=== PATIENT | female | born 1995 | race Caucasian/White ===

== ENCOUNTER → 2017-02-16 | Outpatient (CLI) | payer SELFPAY | LOC: RAD 15:08 | PROVIDERS: ATTEND Nurse Practitioner Women's Health | DX: Z34.02 Encounter for supervision of normal first pregnancy, second trimester (principal) | CPT/HCPCS: 76801 ==

== ENCOUNTER 2017-05-16 17:30 | Outpatient (CLI) | payer MEDICAID ==
[2017-05-16 18:25] LABS: APPEARANCE,URINE CLOUDY; BILIRUBIN,URINE NEGATIVE (NEGATIVE); GLUCOSE, URINE NEGATIVE (NEGATIVE); KETONES,URINE NEGATIVE (NEGATIVE); LEUKOCYTE ESTERASE,URINE SMALL (NEGATIVE); NITRITE,URINE NEGATIVE (NEGATIVE); PROTEIN,URINE NEGATIVE (NEGATIVE); URINE SPECIFIC GRAVITY 1.017
[2017-05-16 18:34] LABS: URINE BARBITURATES SCREEN NEGATIVE; URINE METHADONE SCREEN NEGATIVE; URINE OPIATES LOW NEGATIVE; URINE PHENCYCLIDINE SCREEN NEGATIVE
== END 2017-05-16 18:45 | disposition home or self-care (01) ==
LOC: LC 17:30
PROVIDERS: ATTEND Specialist
PROC: 4A1HXCZ Monitoring of Products of Conception, Cardiac Rate, External Approach (ICD-10-PCS; principal; 2017-05-16)
DX: Z34.92 Encounter for supervision of normal pregnancy, unspecified, second trimester (principal); Z36 Encounter for antenatal screening of mother; Z3A.25 25 weeks gestation of pregnancy
CPT/HCPCS: 59899; 81001; 80307; G0480 ×2

== ENCOUNTER 2017-07-07 17:05 | Emergency (ER) | payer MEDICAID ==
[2017-07-07] MEDS ORDERED: NORMAL SALINE 1000 ML 1,000 ML IV PRN (18:17)
[2017-07-07] MEDS ORDERED: ONDANSETRON HCL INJ/PF 4 MG/2 ML SDV IV ONE (18:17)
--- NOTE | 2017-07-07 18:21 | ER Document Report ---
ED Medical Screen (RME) - General Chief Complaint: Flu Symptoms Stated Complaint: FLU LIKE SYMPTOMS Time Seen by Provider: 07/07/17 18:16 Notes: Patient is approximately 33 weeks , first , who says that she is been sick with vomiting for months from her , but for the past 2 days she is vomited about 30 times and remains nauseated and does not get relief with the dissolving Zofran tablet. Has not tried Phenergan or Reglan. She started having some diarrhea this morning. Also has been congested and voices somewhat hoarse and she has pain in her throat in both of her ears and says her head is "pounding". She has a cough that is productive of some phlegm. Also running some low-grade fever. TRAVEL OUTSIDE OF THE [place] IN LAST 30 DAYS: No - Related Data Allergies/Adverse Reactions: No Known Allergies Allergy (Verified 07/07/17 17:10) Past Medical History Renal/ Medical History: Denies: Hx Peritoneal Dialysis Past Surgical History: Reports: Hx Tonsillectomy - Immunizations Hx Diphtheria, Pertussis, Tetanus Vaccination: Yes Physical Exam - Vital signs Vitals: Temp Pulse Resp BP Pulse Ox 98.6 F 115 H 18 148/81 H 98 07/07/17 17:08 07/07/17 17:08 07/07/17 17:08 07/07/17 17:08 07/07/17 17:08 Course - Vital Signs Vital signs: Temp Pulse Resp BP Pulse Ox 98.6 F 115 H 18 148/81 H 98 07/07/17 17:08 07/07/17 17:08 07/07/17 17:08 07/07/17 17:08 07/07/17 17:08
[2017-07-07 18:47] LABS: HEMATOCRIT 37.9 % (36.0-47.0); HGB HCT DIFFERENCE 1.1; MEAN CORPUSCULAR HEMOGLOBIN 30.6 pg (27.0-33.4); MEAN CORPUSCULAR HGB CONC 34.4 g/dL (32.0-36.0); MEAN CORPUSCULAR VOLUME 89 fl (80-97); RED BLOOD COUNT 4.26 10^6/uL (3.72-5.28); RED CELL DISTRIBUTION WIDTH 12.6 % (11.5-14.0); WHITE BLOOD COUNT 14.4 10^3/uL (4.0-10.5)
[2017-07-07 19:00] LABS: APPEARANCE,URINE CLOUDY; BILIRUBIN,URINE NEGATIVE (NEGATIVE); GLUCOSE, URINE NEGATIVE (NEGATIVE); KETONES,URINE 80 mg/dL (NEGATIVE); LEUKOCYTE ESTERASE,URINE TRACE (NEGATIVE); NITRITE,URINE NEGATIVE (NEGATIVE); PROTEIN,URINE 30 mg/dL (NEGATIVE); URINE SPECIFIC GRAVITY 1.025; UROBILINOGEN,URINE NEGATIVE mg/dL (<2.0)
[2017-07-07 19:02] LABS: ALANINE AMINOTRANSFERASE 26 U/L (9-52); ALBUMIN 3.8 g/dL (3.5-5.0); ALKALINE PHOSPHATASE 141 U/L (38-126); ANION GAP 11 (5-19); ASPARTATE AMINO TRANSFERASE 19 U/L (14-36); BILIRUBIN,DIRECT 0.3 mg/dL (0.0-0.4); BILIRUBIN,TOTAL 0.5 mg/dL (0.2-1.3); BLOOD UREA NITROGEN 6 mg/dL (7-20); CALCIUM 9.7 mg/dL (8.4-10.2); CARBON DIOXIDE 22 mmol/L (22-30); CHLORIDE 104 mmol/L (98-107); CREATININE RESULT 0.51 mg/dL (0.52-1.25); GLUCOSE 74 mg/dL (75-110); LIPASE 191.4 U/L (23-300); POTASSIUM 4.3 mmol/L (3.6-5.0); SODIUM 136.8 mmol/L (137-145); TOTAL PROTEIN 6.8 g/dL (6.3-8.2)
[2017-07-07 19:07] LABS: BASOPHILS % (MANUAL) 0 % (0-2); EOSINOPHILS % (MANUAL) 0 % (0-6); LYMPHOCYTES % (MANUAL) 2 % (13-45); TOTAL CELLS COUNTED 100
[2017-07-07 19:11] LABS: RBC MORPHOLOGY COMMENT NORMO-CYTIC/CHROMIC; TOXIC GRANULATION 1+
[2017-07-07 19:12] LABS: PLATELET CLUMPS PRESENT
--- NOTE | 2017-07-07 21:47 | ER Document Report ---
ED Flu Like - General Chief Complaint: Flu Symptoms Stated Complaint: FLU LIKE SYMPTOMS Time Seen by Provider: 07/07/17 18:16 Notes: Patient is approximately 33 weeks , first , who says that she is been sick with vomiting for months from her , but for the past 2 days she is vomited about 30 times and remains nauseated and does not get relief with the dissolving Zofran tablet. Has not tried Phenergan or Reglan. She started having some diarrhea this morning. Also has been congested and voices somewhat hoarse and she has pain in her throat in both of her ears and says her head is "pounding". She has a cough that is productive of some phlegm. Also running some low-grade fever. TRAVEL OUTSIDE OF THE [place] IN LAST 30 DAYS: No - Related Data Allergies/Adverse Reactions: No Known Allergies Allergy (Verified 07/07/17 17:10) Past Medical History - Social History Smoking Status: Never Smoker Chew tobacco use (# tins/day): No Frequency of alcohol use: None Drug Abuse: None Family History: Reviewed & Not Pertinent Renal/ Medical History: Denies: Hx Peritoneal Dialysis Past Surgical History: Reports: Hx Tonsillectomy - Immunizations Hx Diphtheria, Pertussis, Tetanus Vaccination: Yes Review of Systems - Review of Systems Constitutional: No symptoms reported EENT: See HPI Gastrointestinal: See HPI -: Yes All other systems reviewed and negative Physical Exam - Vital signs Vitals: Temp Pulse Resp BP Pulse Ox 98.6 F 115 H 18 148/81 H 98 07/07/17 17:08 07/07/17 17:08 07/07/17 17:08 07/07/17 17:08 07/07/17 17:08 - Notes Notes: PHYSICAL EXAM GENERAL: Alert, interacts well. HEAD: Normocephalic, atraumatic. EYES: Pupils equal, round, and reactive to light. Extraocular movements intact. ENT: Oral mucosa moist, tongue midline. NECK: Full range of motion. Supple. Trachea midline. LUNGS: Clear to auscultation bilaterally, no wheezes, rales, or rhonchi. No respiratory distress. HEART: Regular rate and rhythm. No murmurs, gallops, or rubs. ABDOMEN: Gravid female, Soft, nondistended, nontender. No guarding, rebound, or rigidity.. Bowel sounds present in all 4 quadrants. EXTREMITIES: Moves all 4 extremities spontaneously. No edema, radial and dorsalis pedis pulses 2/4 bilaterally. No cyanosis. NEUROLOGICAL: Alert and oriented x4. Normal speech. PSYCH: Normal affect, normal mood. SKIN: Warm, dry, normal turgor. No rashes or lesions noted. Course - Re-evaluation Re-evalutation: 07/08/17 06:47 Patient is a 22-year-old female who is hemodynamically stable, no acute distress afebrile. Presents with dehydration and evidence of upper respiratory infection. No evidence of leukocytosis. Patient responded well to IV fluids discharge home is not a new medication and to follow-up with TRUCK GUARD. - Vital Signs Vital signs: Temp Pulse Resp BP Pulse Ox 98.7 F 94 16 131/66 H 97 07/07/17 22:52 07/07/17 22:52 07/07/17 22:52 07/07/17 22:52 07/07/17 22:52 - Laboratory Result Diagrams: 07/07/17 18:34 07/07/17 18:34 Laboratory results interpreted by me: 07/07/17 07/07/17 07/07/17 17:44 18:34 18:34 WBC 14.4 H Seg Neuts % (Manual) 91 H Lymphocytes % (Manual) 2 L Abs Neuts (Manual) 13.1 H Abs Lymphs (Manual) 0.3 L Sodium 136.8 L BUN 6 L Creatinine 0.51 L Glucose 74 L Alkaline Phosphatase 141 H Urine Protein 30 H Urine Ketones 80 H Ur Leukocyte Esterase TRACE H Discharge - Discharge Clinical Impression: Hay fever, Vomiting Condition: Good Disposition: HOME, SELF-CARE Additional Instructions: VOMITING: Vomiting (or nausea without vomiting) can be caused by many other different problems. It can mean that something's wrong with the stomach, such as ulcers or inflammation or the intestinal tract, such as appendicitis. But it can also be a symptom of a problem that has nothing to do with the stomach or intestines. Vomiting is common with severe headaches, earaches, tonsillitis, and kidney infections, etc. We see it with pneumonia or heart attacks. Drugs can cause nausea and vomiting. Many abdominal problems cause vomiting; for example, gallstones, kidney stones, pancreatitis, and intestinal obstruction ( blocked bowels). In most cases, curing the vomiting depends on fixing the problem that caused it. For temporary relief, we may use an anti-nausea medicine. For home use, we can prescribe suppositories, chewable pills, pills that dissolve in the mouth, or liquid anti-nausea drugs. If the vomiting seems to be caused by a problem in the stomach, acid-suppressing drugs may be prescribed as well. It's important to avoid dehydration. Sip small amounts of clear liquids ( soft drinks, tea, broth, etc) . Try to take fluids frequently even if you are vomiting to prevent dehydration. Take increasing amounts of fluid and when liquids are being consumed successfully, advance to small amounts of bland food (toast, soups, mashed potatoes, etc.) until you are able to resume a regular diet. Avoid aspirin, tobacco, and alcohol. If the vomiting worsens, if the problem that's making you vomit worsens, or if there's evidence of bleeding in the stomach (such as black, tarry stool, or bloody or black vomit), you should return immediately. Also, return if abdominal pain worsens or becomes localized to one area or you develop high fever. Call your doctor if you aren't improved in 24 hours. VIRAL SYNDROME: The physician has diagnosed a viral infection. Viruses not only cause "colds," but can cause many different symptoms including generalized aching, fever, headache, cough, diarrhea, nausea, vomiting, and fatigue. The treatment, for the most part, is simply relief of symptoms. This means that antibiotics are usually not given. Rest, fluids, pain medications and, occasionally, medication for the specific symptoms that are most bothersome will be prescribed. Use good handwashing to avoid passing the virus to others. Shared toys should be cleaned with disinfectant. Clean the toilets, sinks, and counter surfaces in bathrooms. Launder clothing in hot water. Contact the physician if you develop any new or unusual symptoms such as severe headache, stiff neck, high fever, chest pain, productive cough, or shortness of breath. You should be rechecked if you don't see marked improvement within seven to 10 days. INTRAVENOUS (I V) FLUIDS: As part of your care today, you received intravenous (IV) fluids. IV fluids are administered to patients who are dehydrated or to those who have certain chemical (electrolyte) abnormalities that need correcting. ANTINAUSEA MEDICATION: You have been given a medication to suppress nausea and vomiting. This type of medication can be given as a shot, pill, or suppository. It will usually last for many hours. Pills and shots usually last six to eight hours. For the typical illness, only one or two doses of the medication may be necessary. Mild lightheadedness may occur. This type of medicine can cause drowsiness. Do not drive or operate dangerous machinery while under its influence. Do not mix with alcohol. See your doctor at once if you have muscle spasms or tightness, or uncontrollable motions (particularly of the neck, mouth, or jaw). Persistent vomiting or severe lightheadedness should also be evaluated by the physician. FOLLOW-UP CARE: If you have been referred to a physician for follow-up care, call the physician s office for an appointment as you were instructed or within the next two days. If you experience worsening or a significant change in your symptoms, notify the physician immediately or return to the Emergency Department at any time for re-evaluation. Prescriptions: Ondansetron [Zofran Odt 4 mg Tablet] 1 - 2 tab PO Q4H PRN #15 tab.rapdis PRN Reason: For Nausea/Vomiting Promethazine HCl [Phenergan 25 mg Tablet] 1 tab PO Q8H PRN #10 tablet PRN Reason: Referrals: RO RAI MD [Primary Care Provider] - Follow up as needed
[2017-07-07] MEDS ORDERED: ONDANSETRON ODT 4 MG TAB (6 TAB/DSPK) PO PRN (22:32)
[2017-07-07 22:54] VITALS: BP 131/66
== END 2017-07-07 22:50 | disposition home or self-care (01) ==
LOC: ER 17:05
DX: O99.519 Diseases of the respiratory system complicating pregnancy, unspecified trimester (principal); J30.1 Allergic rhinitis due to pollen; O21.9 Vomiting of pregnancy, unspecified; O26.899 Other specified pregnancy related conditions, unspecified trimester; R19.7 Diarrhea, unspecified; H92.03 Otalgia, bilateral; R07.0 Pain in throat; R05 Cough; R50.9 Fever, unspecified; O99.280 Endocrine, nutritional and metabolic diseases complicating pregnancy, unspecified trimester; E86.0 Dehydration; Z3A.00 Weeks of gestation of pregnancy not specified
CPT/HCPCS: 99283; 96361; 96374; 36415; 87070; 87086; 87880; 83690; 85025; 87088; 80053; 81001; 87186; J2405; J7030

== ENCOUNTER 2017-08-22 16:25 | Outpatient (CLI) | payer MEDICAID ==
[2017-08-22 17:24] LABS: APPEARANCE,URINE CLEAR; BILIRUBIN,URINE NEGATIVE (NEGATIVE); GLUCOSE, URINE NEGATIVE (NEGATIVE); KETONES,URINE NEGATIVE (NEGATIVE); LEUKOCYTE ESTERASE,URINE NEGATIVE (NEGATIVE); NITRITE,URINE NEGATIVE (NEGATIVE); PROTEIN,URINE NEGATIVE (NEGATIVE); URINE SPECIFIC GRAVITY 1.015; UROBILINOGEN,URINE NEGATIVE mg/dL (<2.0)
--- NOTE | 2017-08-22 17:26 | Non Stress Test Report ---
Non Stress Test Datetime Report Generated by CPN: 08/22/2017 17:26 DEMOGRAPHIC EGA NST: 39.4 INDICATION Indication for Study: Ordered by Provider MONITORING Monitor Explained: Monitor Explained; Test Explained; Patient Verbalized Understanding Time on Monitor: 08/22/2017 16:44 Time off Monitor: 08/22/2017 17:24 NST Duration: 40 NST INTERVENTIONS NST Interventions: PO Hydration BABY A: [id number] BABY A Movement : Present Contraction Frequency : rare FHR Baseline : 145 Accelerations : 15X15 Decelerations : None Variability : Moderate 6-25bpm NST Review: Meets Criteria for Reactive NST NST Review and Verified By : Priyanka Villa RNC NST Results: Reactive NST REPORT Report Trigger: Send Report
[2017-08-22 17:37] LABS: ABSOLUTE EOSINOPHILS # (AUTO) 0.1 10^3/uL (0.0-0.6); ABSOLUTE LYMPHOCYTES (AUTO) 1.5 10^3/uL (0.5-4.7); ABSOLUTE MONOCYTES (AUTO) 0.7 10^3/uL (0.1-1.4); ABSOLUTE NEUT (AUTO) 8.6 10^3/uL (1.7-8.2); BASOPHILS % (AUTO) 0.4 % (0-2); EOSINOPHILS % (AUTO) 0.9 % (0-6); HEMATOCRIT 37.9 % (36.0-47.0); HEMOGLOBIN 13.2 g/dL (12.0-15.5); HGB HCT DIFFERENCE 1.7; LYMPHOCYTES % (AUTO) 13.9 % (13-45); MEAN CORPUSCULAR HEMOGLOBIN 30.8 pg (27.0-33.4); MEAN CORPUSCULAR HGB CONC 34.8 g/dL (32.0-36.0); MEAN CORPUSCULAR VOLUME 89 fl (80-97); MONOCYTES % (AUTO) 6.4 % (3-13); RED BLOOD COUNT 4.27 10^6/uL (3.72-5.28); RED CELL DISTRIBUTION WIDTH 13.5 % (11.5-14.0); SEGMENTED NEUTROPHILS % (AUTO) 78.4 % (42-78); WHITE BLOOD COUNT 10.9 10^3/uL (4.0-10.5)
[2017-08-22 17:44] LABS: URINE BARBITURATES SCREEN NEGATIVE; URINE METHADONE SCREEN NEGATIVE; URINE OPIATES LOW NEGATIVE; URINE PHENCYCLIDINE SCREEN NEGATIVE
[2017-08-22 17:49] LABS: URINE CREATININE 88.5 mg/dL (16-327); URINE PROTEIN 11.3 mg/dL (<12)
[2017-08-22 18:12] LABS: ALANINE AMINOTRANSFERASE 30 U/L (9-52); ALBUMIN 3.5 g/dL (3.5-5.0); ALKALINE PHOSPHATASE 149 U/L (38-126); ANION GAP 11 (5-19); ASPARTATE AMINO TRANSFERASE 20 U/L (14-36); BILIRUBIN,DIRECT 0.4 mg/dL (0.0-0.4); BILIRUBIN,TOTAL 0.5 mg/dL (0.2-1.3); BLOOD UREA NITROGEN 10 mg/dL (7-20); CALCIUM 9.6 mg/dL (8.4-10.2); CARBON DIOXIDE 23 mmol/L (22-30); CHLORIDE 106 mmol/L (98-107); CREATININE RESULT 0.59 mg/dL (0.52-1.25); GLUCOSE 76 mg/dL (75-110); LDH 390 U/L (313-618); POTASSIUM 4.2 mmol/L (3.6-5.0); SODIUM 139.7 mmol/L (137-145); TOTAL PROTEIN 6.1 g/dL (6.3-8.2); URIC ACID 5.9 mg/dL (2.5-6.2)
== END 2017-08-22 18:36 | disposition home or self-care (01) ==
LOC: LC 16:25
PROVIDERS: ATTEND Obstetrics & Gynecology
PROC: 4A1HXCZ Monitoring of Products of Conception, Cardiac Rate, External Approach (ICD-10-PCS; principal; 2017-08-22)
DX: O14.93 Unspecified pre-eclampsia, third trimester (principal); Z3A.39 39 weeks gestation of pregnancy
CPT/HCPCS: 36415; 59025; 80053; 80307; 81001; 82570; 83615; 84156; 84550; 85025

== ENCOUNTER 2017-08-30 22:01 | Outpatient (CLI) | payer MEDICAID ==
[2017-08-30] MEDS ORDERED: ONDANSETRON 4 MG TAB.RAPDIS ONE (22:41)
[2017-08-30 22:48] LABS: APPEARANCE,URINE SLIGHTLY-CLOUDY; BILIRUBIN,URINE NEGATIVE (NEGATIVE); GLUCOSE, URINE NEGATIVE (NEGATIVE); KETONES,URINE NEGATIVE (NEGATIVE); LEUKOCYTE ESTERASE,URINE NEGATIVE (NEGATIVE); NITRITE,URINE NEGATIVE (NEGATIVE); PROTEIN,URINE NEGATIVE (NEGATIVE)
[2017-08-30 22:54] LABS: AMNISURE (ROM) NEGATIVE (NEGATIVE)
[2017-08-30 23:03] LABS: URINE BARBITURATES SCREEN NEGATIVE; URINE METHADONE SCREEN NEGATIVE; URINE OPIATES LOW NEGATIVE; URINE PHENCYCLIDINE SCREEN NEGATIVE
[2017-08-30] MEDS ORDERED: ONDANSETRON 4 MG TAB.RAPDIS PO ONE (23:44)
--- NOTE | 2017-08-31 00:43 | Non Stress Test Report ---
Non Stress Test Datetime Report Generated by CPN: 08/31/2017 00:43 DEMOGRAPHIC Test Number: 2 EGA NST: 40.5 INDICATION Indication for Study: Ordered by Provider MONITORING Monitor Explained: Monitor Explained; Test Explained; Patient Verbalized Understanding Time on Monitor: 08/30/2017 22:56 Time off Monitor: 08/30/2017 23:21 NST Duration: 25 NST INTERVENTIONS NST Interventions: None Physician Notified NST: Dr. Thomas BABY A: [id number] Movement : Present Movement : Present Contraction Frequency : 3-6 FHR Baseline : 135 Accelerations : 15X15 Decelerations : None Variability : Moderate 6-25bpm NST Review: Meets Criteria for Reactive NST NST Review and Verified By : NICOLE AlmanzaT Results: Reactive NST REPORT Report Trigger: Send Report
== END 2017-08-31 00:35 | disposition home or self-care (01) ==
LOC: LC 22:01
PROVIDERS: ATTEND Obstetrics & Gynecology
PROC: 4A1HXCZ Monitoring of Products of Conception, Cardiac Rate, External Approach (ICD-10-PCS; principal; 2017-08-30)
DX: O47.1 False labor at or after 37 completed weeks of gestation (principal); Z3A.40 40 weeks gestation of pregnancy
CPT/HCPCS: 59025; 84112; 81005; 80307; S0119

== ENCOUNTER 2017-08-31 08:20 | Inpatient (IN) | payer MEDICAID ==
[2017-08-31] MEDS ORDERED: RINGERS SOLUTION,LACTATED 1,000 ML IV ONE (08:50)
[2017-08-31 09:20] LABS: ABSOLUTE BASOPHILS # (AUTO) 0.1 10^3/uL (0.0-0.2); ABSOLUTE LYMPHOCYTES (AUTO) 1.2 10^3/uL (0.5-4.7); ABSOLUTE MONOCYTES (AUTO) 0.7 10^3/uL (0.1-1.4); ABSOLUTE NEUT (AUTO) 13.9 10^3/uL (1.7-8.2); BASOPHILS % (AUTO) 0.4 % (0-2); EOSINOPHILS % (AUTO) 0.1 % (0-6); HEMATOCRIT 39.5 % (36.0-47.0); HEMOGLOBIN 13.6 g/dL (12.0-15.5); HGB HCT DIFFERENCE 1.3; LYMPHOCYTES % (AUTO) 7.4 % (13-45); MEAN CORPUSCULAR HGB CONC 34.4 g/dL (32.0-36.0); MEAN CORPUSCULAR VOLUME 87 fl (80-97); MONOCYTES % (AUTO) 4.1 % (3-13); RED BLOOD COUNT 4.54 10^6/uL (3.72-5.28); RED CELL DISTRIBUTION WIDTH 13.5 % (11.5-14.0); WHITE BLOOD COUNT 15.8 10^3/uL (4.0-10.5)
[2017-08-31 09:22] LABS: APPEARANCE,URINE CLOUDY; BILIRUBIN,URINE NEGATIVE (NEGATIVE); GLUCOSE, URINE NEGATIVE (NEGATIVE); KETONES,URINE 80 mg/dL (NEGATIVE); LEUKOCYTE ESTERASE,URINE NEGATIVE (NEGATIVE); NITRITE,URINE NEGATIVE (NEGATIVE); PROTEIN,URINE 100 mg/dL (NEGATIVE); URINE SPECIFIC GRAVITY 1.021
[2017-08-31] MEDS ORDERED: EPHEDRINE SULFATE INJ 50 MG/1 ML AMPULE ONE (09:34)
[2017-08-31] MEDS ORDERED: LIDOCAINE 1% INJ-PF (10 MG/ML) 30 ML SDV ONE (09:35)
[2017-08-31] MEDS ORDERED: MISOPROSTOL 0.2 MG TABLET ONE (09:35)
[2017-08-31] MEDS ORDERED: FENTANYL/BUPIVACAINE/NS/PF 200 MCG/100 ML RTUINJ EPI ONE (09:35)
[2017-08-31] MEDS ORDERED: OXYTOCIN/NORMAL SALINE 20 UNIT/1,000 ML RTUINJ ONE (09:35)
[2017-08-31] MEDS ORDERED: BUPIVACAINE HCL 0.25 % INJ/PF (2.5 MG/1 ML) 30 ML VIAL ONE (09:35)
[2017-08-31 09:42] LABS: URINE BARBITURATES SCREEN NEGATIVE; URINE OPIATES LOW NEGATIVE; URINE PHENCYCLIDINE SCREEN NEGATIVE
[2017-08-31 09:47] LABS: URINE METHADONE SCREEN NEGATIVE
[2017-08-31] MEDS ORDERED: FENTANYL/BUPIVACAINE/NS/PF 200 MCG/100 ML RTUINJ EPI PRN (10:42)
[2017-08-31] MEDS ORDERED: BUPIVACAINE HCL 0.25 % INJ/PF (2.5 MG/1 ML) 30 ML VIAL INFIL ONE (10:42)
[2017-08-31] MEDS ORDERED: EPHEDRINE SULFATE INJ 50 MG/1 ML AMPULE IV PRN (10:42)
[2017-08-31] MEDS ORDERED: BENZOIN/ALOE VERA/STORAX/TOLU TINCTURE 60 ML TP PRN (10:42)
[2017-08-31] MEDS ORDERED: NALOXONE HCL INJ/PF 0.4 MG/1 ML SDV IV PRN (10:44)
[2017-08-31] MEDS ORDERED: OXYTOCIN 10 UNIT/ML VIAL IV PRN (10:44)
[2017-08-31] MEDS ORDERED: METHYLERGONOVINE MALEATE INJ/PF 0.2 MG/1 ML AMPULE IV PRN (10:44)
[2017-08-31] MEDS ORDERED: MISOPROSTOL 0.2 MG TABLET PR PRN (10:44)
[2017-08-31] MEDS ORDERED: OXYTOCIN/NORMAL SALINE 20 UNIT/1,000 ML RTUINJ IV SCH (10:45)
[2017-08-31] MEDS: RINGERS SOLUTION,LACTATED 1,000 ML IV PRN ×2 (10:49→14:05)
--- NOTE | 2017-08-31 11:46 | L&D Progress Notes ---
PROGRESS NOTES Datetime Report Generated by CPN: 08/31/2017 11:46 PROGRESS NOTE Impression: Normal Progression of Labor; Reassuring Heart Rate Plan: Continue Present Management; Induction Vital Signs : Reviewed; Within Normal Limits Comment: Progressing, c/o of pain even with epidural, Cat 1 strip, anticipate MEMBRANES Membranes: Ruptured FETUS A Variability: Moderate 6-25bpm : 40.6 Presentation: Vertex SIGNATURE SIGNATURE: [id number] SIGNATURE: [id number] SIGNATURE: [id number] Assignment: Bam Chavez DO Signature: with User ID: [email or web address] : with User ID: [email or web address]
[2017-08-31] MEDS ORDERED: NALBUPHINE HCL INJ 10 MG/1 ML AMPULE ONE (12:09)
[2017-08-31] MEDS ORDERED: DIPHENHYDRAMINE HCL 50 MG/ML VIAL IV ONE (12:47)
[2017-08-31] MEDS ORDERED: DIPHENHYDRAMINE HCL 50 MG/ML VIAL ONE (12:49)
[2017-08-31] MEDS ORDERED: LIDOCAINE 2% INJ-PF (20 MG/ML) 10 ML AMPUL ONE (13:17)
[2017-08-31 14:05] LABS: ALANINE AMINOTRANSFERASE 25 U/L (9-52); ALBUMIN 3.9 g/dL (3.5-5.0); ALKALINE PHOSPHATASE 192 U/L (38-126); ANION GAP 14 (5-19); ASPARTATE AMINO TRANSFERASE 28 U/L (14-36); BILIRUBIN,DIRECT 0.4 mg/dL (0.0-0.4); BILIRUBIN,TOTAL 0.6 mg/dL (0.2-1.3); BLOOD UREA NITROGEN 7 mg/dL (7-20); CALCIUM 9.9 mg/dL (8.4-10.2); CARBON DIOXIDE 20 mmol/L (22-30); CHLORIDE 106 mmol/L (98-107); CREATININE RESULT 0.61 mg/dL (0.52-1.25); GLUCOSE 110 mg/dL (75-110); LDH 488 U/L (313-618); POTASSIUM 4.1 mmol/L (3.6-5.0); SODIUM 139.7 mmol/L (137-145); TOTAL PROTEIN 6.8 g/dL (6.3-8.2); URIC ACID 6.5 mg/dL (2.5-6.2)
[2017-08-31] MEDS ORDERED: PROMETHAZINE HCL INJ 25 MG/1 ML VIAL IV PRN (16:10)
[2017-08-31] MEDS ORDERED: PROMETHAZINE HCL 25 MG SUPP.RECT PR PRN (16:10)
[2017-08-31] MEDS ORDERED: DIPHENHYDRAMINE HCL 25 MG CAPSULE PO PRN (16:10)
[2017-08-31] MEDS ORDERED: PROMETHAZINE HCL 25 MG TABLET PO PRN (16:10)
[2017-08-31] MEDS ORDERED: ZOLPIDEM TARTRATE 5 MG TABLET PO PRN (16:10)
[2017-08-31] MEDS ORDERED: ACETAMINOPHEN 650 MG SUPP.RECT PR PRN (16:10)
[2017-08-31] MEDS ORDERED: ACETAMINOPHEN WITH CODEINE #3 TABLET PO PRN ×2 (16:10)
[2017-08-31] MEDS ORDERED: GLYCERIN/WITCH HAZEL LEAF 1 EACH MED..PAD TP PRN (16:10)
[2017-08-31] MEDS ORDERED: PSEUDOEPHEDRINE HCL 30 MG TABLET PO PRN (16:10)
[2017-08-31] MEDS ORDERED: BENZOCAINE/MENTHOL AEROSOL SPRAY 56 ML TOP PRN (16:10)
[2017-08-31] MEDS ORDERED: DIPH/PERTUSS(ACELL)/TETANUS VAC/PF 0.5 ML SYR (>=10YO) IM PRN (16:10)
[2017-08-31] MEDS ORDERED: MEASLES,MUMPS&RUBELLA VACC/PF 0.5 ML VIAL SUBCUT PRN (16:10)
[2017-08-31] MEDS ORDERED: MAGNESIUM HYDROXIDE SUSP 30 ML UDCUP PO PRN (16:10)
[2017-08-31] MEDS ORDERED: OXYTOCIN/NORMAL SALINE 20 UNIT/1,000 ML RTUINJ IV PRN (16:10)
[2017-08-31] MEDS ORDERED: NA PHOS,M-B/NA PHOS,DI-BA (ADULT) 133 ML ENEMA PR PRN (16:10)
[2017-08-31] MEDS ORDERED: DIBUCAINE 1% OINTMENT 28 GM TP PRN (16:10)
[2017-08-31] MEDS ORDERED: BENZOCAINE/MENTHOL AEROSOL SPRAY 56 ML ONE (17:00)
--- NOTE | 2017-08-31 18:15 | Delivery Summary ---
Del Sum A-C Datetime Report Generated by CPN: 08/31/2017 18:14 DELIVERY PERSONNEL DELIVERY PERSONNEL: [id number] Delivery Doctor:: Miladys Medina CNM Nurse Certified Ophthalmic Assistant Certified:: Miladys Medina CNM Labor and Delivery Nurse:: Yeyo Antunez RNlicensed mortgage loan officer Nurse:: Sommer Tapia RN Predator Control Trapper/CREW TRUCK DRIVER: Roro Smalls CST Predator Control Trapper/CREW TRUCK DRIVER: Kenisha Cerda CST Additional Personnel: : Belkys Garcia, RNC MATERNAL INFORMATION Delivery Anesthesia: Epidural Medications After Delivery: Pitocin Bolus-Please Comment; Pitocin Drip 20 Units/1000ml NSS; Cytotec 600mcg Per Rectum/Vagina Estimated Blood Loss (ml): 300 Maternal Complications: None Provider Comments: Pt pushing, on perineum, viable boy from OA to ANNABELLE, compound hand presentation, placed on mothers abd, cord clamped and cut after 2 minutes by FOB. Spont del of grossly normal intact placenta, 3 vc, ebl = 300 cc, no lacerations, IV Pitocin, massage, cytotec 600 mcg via rectum, baby and mom remain in recovery in stable condition (Annotations: Data stored by N on behalf of user) LABOR SUMMARY EDC: 08/25/2017 00:00 No. Babies in Womb: 1 Attempted: No Labor Anesthesia: Epidural LABOR INFORMATION Reason for Induction: Not Applicable Onset of Labor: 08/31/2017 03:00 Complete Dilatation: 08/31/2017 15:38 Cervical Ripening Agents: Cytotec @ 600 Oxytocin: N/A Group B Beta Strep: Negative Antibiotics # of Doses: 0 Steroids Given: None Reason Steroids Not Administered: Not Applicable MEMBRANES Membranes Rupture Method: Spontaneous Rupture of Membranes: 08/31/2017 10:35 Length of Rupture (hr): 5.28 Amniotic Fluid Color: Clear Amniotic Fluid Amount: Small Amniotic Fluid Odor: None STAGES OF LABOR Stage 1 hr: 12 Stage 1 min: 38 Stage 2 hr: 0 Stage 2 min: 14 Stage 3 hr: 0 Stage 3 min: 5 Total Time in Labor hr: 12 Total Time in Labor min: 57 VAGINAL DELIVERY Episiotomy: None Laceration #1: None Laceration Extension #1: N/A Laceration Repair: Not Applicable Sponge Count Correct: N/A Sharps Count Correct: N/A CSECTION DELIVERY Primary Indication: N/A Secondary Indication: N/A CSection Incidence: N/A Labor: N/A Elective: N/A CSection Incision: N/A BABY A INFORMATION Delivery Date/Time: 08/31/2017 15:52 Method of Delivery: Vaginal Born in Route : No : N/A Forceps: N/A Vacuum Extraction: N/A Shoulder Dystocia : No PRESENTATION/POSITION BABY A Presentation: Cephalic Cephalic Presentation: Vertex Vertex Position: OA Breech Presentation: N/A PLACENTA INFORMATION BABY A Placenta Delivery Time : 08/31/2017 15:57 Placenta Method of Delivery: Spontaneous Placenta Status: Delivered SCORES BABY A Heart Rate 1 min: >100 bpm Resp Effort 1 min: Good Cry Reflex Irritability 1 min: Cough or Sneeze or Pulls Away Muscle Tone 1 min: Some Flexion of Extremities Color 1 min: Body [place], Extremities Blue Resuscitation Effort 1 min: Tactile Stimulation SCORE 1 MIN: 8 Heart Rate 5 min: >100 bpm Resp Effort 5 min: Good Cry Reflex Irritability 5 min: Cough or Sneeze or Pulls Away Muscle Tone 5 min: Some Flexion of Extremities Color 5 min: Body [place], Extremities Blue Resuscitation Effort 5 min: Tactile Stimulation SCORE 5 MIN: 8 INFORMATION BABY A Gestational Age at Delivery: 40.6 Gestational Status: Full Term- 39- 40.6 Weeks Outcome : Liveborn Condition : Stable Sex: Male IDENTIFICATION BABY A Verification Date/Time: 08/31/2017 16:06 ID Band Number: [id number] Mother's Name Verified: Yes Infant RN Verifying : Elham Ocasio NICOLE Additional Verifying Personnel: Fermin Garcia RN CORD INFORMATION BABY A No. Cord Vessels: 3 Nuchal Cord : N/A Cord Blood Taken: Yes-For Storage (Mom's Blood type +) Suction: None ASSESSMENT BABY A Infant Complications: None Physical Findings at Delivery: Molding of the Head Infant Respirations: Appears Normal Skin to Skin: Yes Title Insurance Examiner/ALS Called : No Infant Care By: D Bellavance RN BABY B INFORMATION : N/A
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
[2017-08-31] MEDS: DOCUSATE SODIUM 100 MG CAPSULE PO SCH (20:05)
[2017-08-31] MEDS: FERROUS SULFATE 325 MG TABLET PO SCH (20:05)
[2017-08-31] MEDS: FAMOTIDINE 20 MG TABLET PO SCH (22:38)
[2017-08-31] MEDS: IBUPROFEN 800 MG TABLET PO SCH (22:39)
[2017-09-01] MEDS: IBUPROFEN 800 MG TABLET PO SCH ×3 (05:04→22:16)
[2017-09-01 07:15] LABS: HGB HCT DIFFERENCE 1.5; MEAN CORPUSCULAR HEMOGLOBIN 30.7 pg (27.0-33.4); MEAN CORPUSCULAR HGB CONC 34.8 g/dL (32.0-36.0); MEAN CORPUSCULAR VOLUME 88 fl (80-97); RED BLOOD COUNT 3.74 10^6/uL (3.72-5.28); RED CELL DISTRIBUTION WIDTH 13.5 % (11.5-14.0); WHITE BLOOD COUNT 16.4 10^3/uL (4.0-10.5)
[2017-09-01 07:37] LABS: HEMOGLOBIN 11.5 g/dL (12.0-15.5)
[2017-09-01] MEDS: DOCUSATE SODIUM 100 MG CAPSULE PO SCH ×2 (08:59→18:16)
[2017-09-01] MEDS: FAMOTIDINE 20 MG TABLET PO SCH ×2 (08:59→22:16)
[2017-09-01] MEDS: FERROUS SULFATE 325 MG TABLET PO SCH ×2 (08:59→18:16)
[2017-09-01] MEDS: PRENATAL VITAMIN W-O CA NO5/FE FUMARATE/FA CAPSULE PO SCH (09:00)
[2017-09-01] MEDS: SENNOSIDES/DOCUSATE 8.6-50 MG 1 EACH TABLET PO SCH (09:00)
--- NOTE | 2017-09-01 11:22 | PDOC PROGRESS REPORT ---
Subjective-OB Subjective: Post Delivery Day:1 22 year old G1 now P1 s/p ppd1. Voiding, ambulating and without difficulty. Denies s/s of pre-e or any needs at this time Physical Exam (OB) Vital Signs: Temp Pulse Resp BP Pulse Ox 97.8 F 64 16 143/84 H 100 09/01/17 08:08 09/01/17 08:08 09/01/17 08:08 09/01/17 08:08 09/01/17 08:08 Intake & Output 08/31/17 09/01/17 09/02/17 06:59 06:59 06:59 Intake Total 200 Balance 200 Weight 86.85 kg - General General Appearance: Appears well In distress: None - PIH/Pre-Eclampsia DTR's: 2 + Headache: Absent Epigastric Pain: No Visual Changes: No - Episiotomy/Laceration Site Condition: N/A - Lochia Lochia Amount: Small 10-25 ml Lochia Color: Rubra/Red - Abdomen Description: Soft Hernia Present: No Fundal Description: Firm, Midline Fundal Height: u/u - u/2 - Respiratory Respiratory Status: No respiratory distress - Extremities Upper extremity: Normal inspection Lower extremities: Normal inspection - Neurological Cognition: Normal Orientation: AAOx4 - Psychological Associated symptoms: Normal affect, Normal mood Objective-Diagnostic Laboratory: 09/01/17 07:00 08/31/17 09:06 08/31/17 08/31/17 09/01/17 09:06 09:06 07:00 WBC 16.4 H RBC 3.74 Hgb 11.5 L D Hct 33.0 L MCV 88 MCH 30.7 MCHC 34.8 RDW 13.5 Plt Count 146 L Sodium 139.7 Potassium 4.1 Chloride 106 Carbon Dioxide 20 L Anion Gap 14 BUN 7 Creatinine 0.61 Est GFR ( Amer) > 60 Est GFR (Non-Af Amer) > 60 Glucose 110 Uric Acid 6.5 H Calcium 9.9 Total Bilirubin 0.6 AST 28 ALT 25 Alkaline Phosphatase 192 H Total Protein 6.8 Albumin 3.9 Blood Type A POSITIVE Antibody Screen NEGATIVE Assessment and Plan(PN) - Assessment and Plan (1) Vaginal delivery Is this a current diagnosis for this admission?: Yes Plan: routine pp care (2) Drug use affecting in third trimester Is this a current diagnosis for this admission?: Yes Plan: financial planner in place (3) Hypertension in , transient, Is this a current diagnosis for this admission?: Yes Plan: continue to monitor for s/s of pre-e. - Time Spent with Patient Time with patient: 15-25 minutes - Disposition Anticipated Discharge: Home Within: within 24 hours
[2017-09-01] MEDS ORDERED: INFLUENZA ADLT QUAD (36MOS+) 2017-18 VAC 0.5 ML SYR IM PRN (14:21)
[2017-09-02] MEDS: IBUPROFEN 800 MG TABLET PO SCH ×2 (07:30→14:09)
--- NOTE | 2017-09-02 09:38 | PDOC PROGRESS REPORT ---
Subjective-OB Subjective: Post Delivery Day: 22 year old. Denies any needs at this time well, no c/o, ready to go home, baby is jaundice and may not go today, breast feeding, voiding Physical Exam (OB) Vital Signs: Temp Pulse Resp BP Pulse Ox 98.2 F 78 14 131/83 H 100 09/02/17 07:56 09/02/17 07:56 09/02/17 07:56 09/02/17 07:56 09/02/17 07:56 Intake & Output 09/01/17 09/02/17 09/03/17 06:59 06:59 06:59 Intake Total 200 Balance 200 Weight 86.85 kg - PIH/Pre-Eclampsia DTR's: 2 + Clonus: Negative Headache: Absent Epigastric Pain: No Visual Changes: No - Lochia Lochia Amount: Scant < 10 ml Lochia Color: Rubra/Red - Abdomen Description: Soft Hernia Present: No Fundal Description: Firm, Midline Fundal Height: u/u - u/2 Objective-Diagnostic Laboratory: 09/01/17 07:00 08/31/17 09:06 Assessment and Plan(PN) - Assessment and Plan (1) Drug use affecting in third trimester Is this a current diagnosis for this admission?: Yes (2) Hypertension in , transient, Is this a current diagnosis for this admission?: Yes (3) Vaginal delivery Is this a current diagnosis for this admission?: Yes - Time Spent with Patient Time with patient: Less than 15 minutes Medications reviewed and adjusted accordingly: Yes - Disposition Anticipated Discharge: Home Within: Other - RTC 1 week check BP
[2017-09-02] MEDS: FERROUS SULFATE 325 MG TABLET PO SCH ×2 (09:39→17:17)
[2017-09-02] MEDS: DOCUSATE SODIUM 100 MG CAPSULE PO SCH ×2 (09:40→17:17)
[2017-09-02] MEDS: SENNOSIDES/DOCUSATE 8.6-50 MG 1 EACH TABLET PO SCH (09:40)
[2017-09-02] MEDS: FAMOTIDINE 20 MG TABLET PO SCH (09:40)
[2017-09-02] MEDS: PRENATAL VITAMIN W-O CA NO5/FE FUMARATE/FA CAPSULE PO SCH (09:40)
--- NOTE | 2017-09-02 09:42 | PDOC DISCHARGE SUMMARY ---
Final Diagnosis Discharge Date: 09/02/17 - Final Diagnosis (1) Drug use affecting in third trimester Is this a current diagnosis for this admission?: Yes (2) Hypertension in , transient, Is this a current diagnosis for this admission?: Yes (3) Vaginal delivery Is this a current diagnosis for this admission?: Yes Discharge Data - Discharge Medication Home Medications: Vit 10/Iron/Folic/Dha [Vitafol-Ob+Dha Combo Pack] 1 cap PO DAILY Gestational Age: 40.6 Reason(s) for Admission: Onset of Labor Procedures: NST, Ultrasound Intrapartum Procedure(s): Spontaneous Vaginal Delivery - Data Baby 1 Male at 1 minute: 8 at 5 minutes: 8 Weight: 2.977 kg Home with Mother: Yes Complications: No - Diagnosis Test Laboratory: Temp Pulse Resp BP Pulse Ox 98.2 F 78 14 131/83 H 100 09/02/17 07:56 09/02/17 07:56 09/02/17 07:56 09/02/17 07:56 09/02/17 07:56 08/31/17 08/31/17 09/01/17 09:06 09:06 07:00 RBC 4.54 3.74 Hgb 13.6 11.5 L D Hct 39.5 33.0 L Urine Opiates Screen NEGATIVE - Discharge information/Instructions Discharge Activity: Activity As Tolerated, No Lifting Over 10 Pounds, No Lifting /Push/Pulling, Pelvic Rest Discharge Diet: As Tolerated, Regular Disposition: HOME, SELF-CARE Follow up with: [facility] in: 1, Weeks - BP check
[2017-09-02 12:19] VITALS: BP 133/86
== END 2017-09-02 19:00 | disposition home or self-care (01) | DRG 774 ==
LOC: LC 08:20 → LR 08:55 → 2S 18:40
PROVIDERS: ADMIT Obstetrics & Gynecology; ATTEND Obstetrics & Gynecology
PROC: 10E0XZZ Delivery of Products of Conception, External Approach (ICD-10-PCS; principal; 2017-08-31)
PROC: 3E0P7GC Introduction of Other Therapeutic Substance into Female Reproductive, Via Natural or Artificial Opening (ICD-10-PCS; 2017-08-31)
PROC: 4A1HXCZ Monitoring of Products of Conception, Cardiac Rate, External Approach (ICD-10-PCS; 2017-08-31)
PROC: 3E0234Z Introduction of Serum, Toxoid and Vaccine into Muscle, Percutaneous Approach (ICD-10-PCS; 2017-09-02)
DX: O99.324 Drug use complicating childbirth (principal); O13.5 Gestational [pregnancy-induced] hypertension without significant proteinuria, complicating the puerperium; O99.52 Diseases of the respiratory system complicating childbirth; J45.909 Unspecified asthma, uncomplicated; O32.6XX0 Maternal care for compound presentation, not applicable or unspecified; F12.90 Cannabis use, unspecified, uncomplicated; Z87.891 Personal history of nicotine dependence; Z23 Encounter for immunization; Z3A.40 40 weeks gestation of pregnancy; Z37.0 Single live birth
CPT/HCPCS: 36415; 80053; 80307; 81005; 83615; 84550; 85025; 85027; 86592; 86850; 86900; 86901; 94760; G0480; J1200; J2300; J2590; J3490